=== PATIENT | male | born 1965 | race Caucasian/White ===

== ENCOUNTER 2020-12-17 09:58 | Outpatient (REF) | payer OTHER, SELFPAY ==
--- NOTE | ~2020-12-17 | XR_ITS ---
EXAMINATION: XR BILATERAL HAND SERIES CLINICAL INFORMATION: Hand pain. COMPARISON: None. TECHNIQUE: 3 views of each hand. FINDINGS: RIGHT HAND: Possible tiny marginal osteophytes about the DIP joint of the middle finger. Small cystic change more likely enthesopathic than related to the joint surface. Remaining bones, joints, and soft tissues unremarkable. LEFT HAND: DIP joint of the small finger. There is prominent joint space narrowing, marginal osteophytes, and perhaps some central erosion indicative of moderate to severe osteoarthritis. The remaining bones, joints, and soft tissues are unremarkable. XR/XR hand RT min 3V IMPRESSION: Right hand: Probable mild osteoarthritis of the DIP joint of the middle finger. 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
--- NOTE | ~2020-12-17 | XR_ITS ---
EXAMINATION: XR BILATERAL HAND SERIES CLINICAL INFORMATION: Hand pain. COMPARISON: None. TECHNIQUE: 3 views of each hand. FINDINGS: RIGHT HAND: Possible tiny marginal osteophytes about the DIP joint of the middle finger. Small cystic change more likely enthesopathic than related to the joint surface. Remaining bones, joints, and soft tissues unremarkable. LEFT HAND: DIP joint of the small finger. There is prominent joint space narrowing, marginal osteophytes, and perhaps some central erosion indicative of moderate to severe osteoarthritis. The remaining bones, joints, and soft tissues are unremarkable. XR/XR hand LT min 3V IMPRESSION: Right hand: Probable mild osteoarthritis of the DIP joint of the middle finger. 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
[2020-12-17 11:36] LABS: MANUAL DIFF FLAG NO
[2020-12-17 11:45] LABS: Basophils Percent Auto 0.3 % (0-2); Eosinophils Absolute Auto 0.2 X10*3/uL (0.0-0.4); Eosinophils Percent Auto 3.4 % (0-4); Hematocrit 45.7 % (42-52); Hemoglobin 15.6 g/dl (14.0-18.0); Imm Gran Abs Auto 0.03 X10*3/uL (0.00-0.03); Imm Gran Pct Auto 0.5 % (0.0-0.4); Lymphocytes Absolute Auto 1.9 X10*3/uL (1.2-4.9); Lymphocytes Percent Auto 30.3 % (20-40); Mean Corpuscular HGB Conc 34.1 g/dl (31.0-36.0); Mean Corpuscular Hemoglobin 29.1 pg (27.0-33.0); Mean Corpuscular Volume 85.3 fL (80-98); Mean Platelet Volume 10.8 fL (9.4-12.4); Monocytes Absolute Auto 0.4 X10*3/uL (0.1-1.2); Monocytes Percent Auto 6.9 % (2-11); Neutrophils Absolute Auto 3.6 X10*3/uL (2.0-8.3); Neutrophils Percent Auto 58.6 % (45-73); Platelet Count 187 X10*3/uL (160-400); Red Blood Count 5.36 X10*6/uL (4.60-5.80); White Blood Count 6.1 X10*3/uL (4.8-10.8)
[2020-12-17 12:11] LABS: Alanine Aminotransferase 39 U/L (0-40); Albumin Level 4.5 g/dL (3.5-5.0); Alkaline Phosphatase 87 U/L (39-117); Anion Gap 14 (12-20); Aspartate Amino Transferase 18 U/L (5-37); Bilirubin Total 0.5 mg/dL (0.0-1.0); Blood Urea Nitrogen 16 mg/dL (9-16); C Reactive Protein 0.03 mg/dL (< or = 0.50); Calcium 9.5 mg/dL (8.4-10.2); Carbon Dioxide 26 mmol/L (22-29); Chloride 103 mmol/L (96-108); Estimated Glomerular Filt Rate > 60; Glucose Random 193 mg/dL (60-115); Potassium 4.2 mmol/L (3.3-5.1); Rheumatoid Factor < 15.0 IU/mL (<15.0); Sodium 139 mmol/L (135-145); Total Protein 7.4 g/dL (6.5-8.0)
[2020-12-17 12:35] LABS: Thyroid Stimulating Hormone 0.95 uIU/mL (0.32-4.0)
[2020-12-17 13:16] LABS: Erythrocyte Sedimentation Rate 2 MM/HR (0-15)
[2020-12-18 08:21] LABS: Lyme Abs Screen <0.90 index
[2020-12-19 12:51] LABS: IgA 127 mg/dL (47-310); IgG 1392 mg/dL (600-1640); IgM 58 mg/dL (50-300)
[2020-12-20 18:36] LABS: Anti Nuclear Antibody Screen NEGATIVE (NEGATIVE)
[2020-12-20 23:02] LABS: Prot Elec - Albumin 4.5 g/dL (3.8-4.8); Prot Elec - Alpha1 0.2 g/dL (0.2-0.3); Prot Elec - Alpha2 0.6 g/dL (0.5-0.9); Prot Elec - Beta 1 0.3 g/dL (0.4-0.6); Prot Elec - Beta 2 0.3 g/dL (0.2-0.5); Prot Elec - Gamma 1.2 g/dL (0.8-1.7); Prot Elec - Total Protein 7.1 g/dL (6.1-8.1)
[2020-12-21 11:22] LABS: Cyclic Citrullinated Peptide <16 UNITS
[2020-12-24 13:22] LABS: Vitamin D 25-OH, D2 <4 ng/mL; Vitamin D 25-OH, D3 36 ng/mL; Vitamin D 25-OH, Total 36 ng/mL (30-100)
== END 2020-12-17 09:59 | disposition home or self-care (01) ==
LOC: HO.LAB 09:58
PROVIDERS: PCP Family Medicine; Visit Provider Student in an Organized Health Care Education/Training Program
DX: M25.50 Pain in unspecified joint (principal)
CPT/HCPCS: 36415; 73130; 80053; 82306; 82550; 82784; 84155; 84165; 84443; 85025; 85652; 86038; 86039; 86140; 86200; 86334; 86431; 86617; 86618; 99202

== ENCOUNTER → 2020-12-31 14:18 | Outpatient (BNVA) | payer OTHER, SELFPAY | PROVIDERS: PCP Family Medicine; Visit Provider Student in an Organized Health Care Education/Training Program | DX: M25.50 Pain in unspecified joint (principal); M79.7 Fibromyalgia | CPT/HCPCS: 99212 ==